=== PATIENT | male | born 1940 | race Caucasian/White ===

== ENCOUNTER 2019-12-13 13:17 | Emergency (ER) | payer OTHER, SELFPAY ==
[2019-12-13 14:14] LABS: Absolute Lymphocytes (CBC) 0.7 K/uL (0.7-4.9); Basophils % 0.2 % (0-1.3); Lymphocytes % 7.9 % (15.3-44.8); RBC Red Blood Cell Count 2.03 M/uL (4.33-5.43)
--- NOTE | 2019-12-13 14:15 | RAD REPORT ---
EXAM DESCRIPTION: CT - Head Brain Wo Cont - 12/13/2019 2:06 pm CLINICAL HISTORY: Syncope COMPARISON: None TECHNIQUE: Computed axial tomography of the head was obtained. IV contrast was not requested. All CT scans are performed using dose optimization technique as appropriate and may include automated exposure control or mA/KV adjustment according to patient size. FINDINGS: An acute intracranial bleed is not seen . The ventricles are normal in caliber. No extra-axial fluid collection is noted. Right craniotomy. 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 Fluid within the sinuses/ mastoids is not seen. IMPRESSION: No acute intracranial abnormality is seen. If patient's symptoms persist MRI of the bra in would be recommended.
[2019-12-13 14:23] LABS: Protime INR 1.12
[2019-12-13 14:25] LABS: Hematocrit 19.4 % (39.6-49.0)
[2019-12-13 14:37] LABS: ALT/SGPT 15 U/L (12-78); AST/SGOT 10 U/L (15-37); Albumin 3.1 g/dL (3.4-5.0); Alkaline Phosphatase 101 U/L (45-117); BUN Blood Urea Nitrogen 75 mg/dL (7-18); Bicarbonate 23 mmol/L (21-32); Bilirubin Direct 0.1 mg/dL (0-0.2); Bilirubin Total 0.2 mg/dL (0.2-1.0); Glucose Level 261 mg/dL (74-106); Magnesium 2.2 mg/dL (1.8-2.4); NT PRO-BNP 7053 pg/mL (<450); Potassium 4.9 mmol/L (3.5-5.1); Protein, Total 6.9 g/dL (6.4-8.2); Sodium Level 138 mmol/L (136-145); Troponin (Emerg Dept Use Only) < 0.02 ng/mL (0.0-0.045)
[2019-12-13 14:42] LABS: Blood Morphology Comment NOT SEEN (NOT SEEN); Platelet Estimate ADEQ; Urine White Blood Cell Casts OK
[2019-12-13] MEDS ORDERED: PANTOPRAZOLE INJ 80 MG in NA CHLORIDE 0.9% 250 ML IV SCH (15:00)
--- NOTE | 2019-12-13 15:11 | RAD REPORT ---
EXAM DESCRIPTION: CT - Abdomen Pelvis Wo Contrast - 12/13/2019 2:50 pm CLINICAL HISTORY: Abdominal pain /GI bleed COMPARISON: None TECHNIQUE: Computed axial tomography of the abdomen and pelvis was obtained. IV and oral contrast we re not requested. All CT scans are performed using dose optimization technique as appropriate and may include automated exposure control or mA/KV adjustment according to patient size. FINDINGS: The evaluation of solid organs, vessels and bowel is limited secondary to the lack of con trast administration. Small left pleural effusion with left lower lobe atelectasis The liver, spleen, pancreas, and adrenals appear grossly normal. 3.6 centimeter low-density mass extends off of the right kidney. Sub centimeter hemorrhagic/proteinac eous cyst. Tiny left renal cyst. 2 millimeter calcification left kidney. No hydronephrosis. Small umbilical hernia contains fat Mild rectal wall thickening The appendix is normal. There is no evidence of diverticulitis. IMPRESSION: Mild rectal wall thickening may indicate inflammation or mass Small left pleural effusion with left basilar atelectasis
--- NOTE | 2019-12-13 15:13 | RAD REPORT ---
EXAM DESCRIPTION: Tina Single View12/13/2019 2:19 pm CLINICAL HISTORY: Chest pain COMPARISON: none FINDINGS: A 24 millimeter nodular opacity right super hilum. Smaller additional nodular opacity with in the right lung. Left base is hazy Heart is borderline enlarged IMPRESSION: A 25 millimeter nodular opacity right suprahilar region. Smaller additional nodular opac ity noted within the right lung. CT chest recommended Left base is hazy which could be secondary to pleural effusion/ atelectasis
--- NOTE | 2019-12-13 15:23 | EDPHYS ---
Physician Documentation [facility] Name: Thien Stock Age: 79 yrs Sex: Male : 1940 Arrival Date: 12/13/2019 Time: 13:23 Bed 25 Private MD: ED Physician Jay Quinones HPI: 12/13 13:38 This 81 yrs old Male presents to ER via EMS with complaints of Syncope. pm1 13:38 The patient has experienced syncope, became unresponsive. Onset: The symptoms/episode pm1 began/occurred just prior to arrival. 13:38 Duration: This was a single episode, that lasted 2 minute(s), Patient was aware of pm1 everything going on but felt to weak to respond. Context: the episode(s) was witnessed, by family, grandson, occurred restaurant, occurred while the patient was defecating, Just prior to the episode the patient experienced no apparent symptoms. Associated injury: The patient did not suffer any apparent associated injury, Other: patient did not fall and remained seated on the toilet. Associated signs and symptoms: Pertinent positives: diaphoresis, lightheadedness, Pertinent negatives: abdominal pain, chest pain, shortness of breath. Current symptoms: Currently, the patient is not experiencing any symptoms, the patient feels back to baseline. Patient was at [facility] and went to the restroom to have a bowel movement. While having a bowel movement he felt lightheaded and was not responsive according to his grandson. Patient denies LOC and was aware of everything going on but he felt too weak to respond. On EMS arrival they reported that the patient's heart rate was in the 30's for about 10-15 minutes and administered him atropine 0.5 mg IV. Patient reports no complaints since receiving atropine. Historical: - Allergies: 15:12 No Known Allergies; aj1 - Home Meds: 15:12 aspirin 81 mg Oral chew 1 tab once daily [Active]; Stool Softener oral oral once daily aj1 [Active]; magnesium oxide 420 mg Oral tab daily [Active]; carvedilol 25 mg oral tab 1 tab 2 times per day [Active]; Plavix 75 mg Oral tab 1 tab once daily [Active]; finasteride 5 mg oral tab 1 tab once daily [Active]; furosemide 80 mg Oral tab 1 tab 2 times per day [Active]; isosorbide dinitrate 30 mg Oral tab 1 tab 2 times per day [Active]; nifedipine 60 mg Oral TbER 1 tab twice daily [Active]; spironolactone 50 mg Oral tab 1 tab once daily [Active]; ferrous gluconate 324 mg (37.5 mg iron) Oral tab twice a day [Active]; atorvastatin 80 mg oral tab 1 tab once daily [Active]; cetirizine 10 mg oral tab 1 tab once daily [Active]; multivitamin oral oral [Active]; omeprazole 20 mg Oral cpDR 1 cap once daily [Active]; gabapentin 300 mg oral cap 1 cap at bedtime [Active]; - PMHx: 15:12 Diabetes - NIDDM; cardiac stents x2; CKD; Hypertension; CHF; aj1 - Immunization history:: Adult Immunizations unknown. - Coronavirus screen:: The patient has NOT traveled to [place], [place], or [place] in the past 14 days. - Social history:: Smoking status: Patient denies any tobacco usage or history of. - Ebola Screening: : No symptoms or risks identified at this time. ROS: 13:38 Constitutional: Negative for fever, chills, and weight loss, Eyes: Negative for injury, pm1 pain, redness, and discharge, ENT: Negative for injury, pain, and discharge, Neck: Negative for injury, pain, and swelling, Cardiovascular: Negative for chest pain, palpitations, and edema, Respiratory: Negative for shortness of breath, cough, wheezing, and pleuritic chest pain, Abdomen/GI: Negative for abdominal pain, nausea, vomiting, diarrhea, and constipation, Back: Negative for injury and pain, MS/Extremity: Negative for injury and deformity, Skin: Negative for injury, rash, and discoloration. 13:38 Neuro: Positive for dizziness, syncope, Negative for headache. 14:34 Abdomen/GI: Positive for black/tarry stool, for the past 1 month. [place] has been planning pm1 to give the patient "shots" for his anemia. Exam: 13:38 Constitutional: This is a well developed, well nourished patient who is awake, alert, pm1 and in no acute distress. Head/Face: Normocephalic, atraumatic. 13:38 ENT: Nares patent. No nasal discharge, no septal abnormalities noted. Tympanic membranes are normal and external auditory canals are clear. Oropharynx with no redness, swelling, or masses, exudates, or evidence of obstruction, uvula midline. Mucous membranes moist. Neck: Trachea midline, no thyromegaly or masses palpated, and no cervical lymphadenopathy. Supple, full range of motion without nuchal rigidity, or vertebral point tenderness. No Meningismus. Chest/axilla: Normal chest wall appearance and motion. Nontender with no deformity. No lesions are appreciated. Cardiovascular: Regular rate and rhythm with a normal S1 and S2. No gallops, murmurs, or rubs. Normal PMI, no JVD. No pulse deficits. Respiratory: Lungs have equal breath sounds bilaterally, clear to auscultation and percussion. No rales, rhonchi or wheezes noted. No increased work of breathing, no retractions or nasal flaring. 13:38 Back: No spinal tenderness. No costovertebral tenderness. Full range of motion. Skin: Warm, dry with normal turgor. Normal color with no rashes, no lesions, and no evidence of cellulitis. MS/ Extremity: Pulses equal, no cyanosis. Neurovascular intact. Full, normal range of motion. 13:38 Eyes: Periorbital structures: appear normal, Pupils: no acute changes, Conjunctiva: pale, bilaterally. 13:38 Abdomen/GI: Inspection: abdomen appears normal, Bowel sounds: normal, in all quadrants, Palpation: abdomen is soft and non-tender, in all quadrants. 13:38 Skin: Appearance: normal except for affected area, Color: pale. 13:38 Neuro: Orientation: is normal, Mentation: is normal, Motor: is normal, moves all fours. 14:33 Abdomen/GI: Rectal exam: rectal tone normal, stool guaiac positive, stool black, stool pm1 loose, mass, is not appreciated, tenderness, is not appreciated, Jazzmine ASHER. Vital Signs: 13:25 BP 133 / 69; Pulse 84; Resp 18; Temp 97.6; Pulse Ox 97% on 2 lpm NC; vc 14:25 BP 137 / 55; Pulse 65; Resp 18; Pulse Ox 100% on 2 lpm NC; vc 15:20 BP 147 / 51; Pulse 62; Resp 18; Pulse Ox 97% on 2 lpm NC; vc 16:00 BP 146 / 53; Pulse 56; Resp 12; Pulse Ox 97% on 2 lpm NC; vc 16:30 BP 147 / 57; Pulse 56; Resp 16; Pulse Ox 96% on 2 lpm NC; vc 17:20 BP 147 / 50; Pulse 55; Resp 16; Temp 97.7(O); Pulse Ox 97% on 2 lpm NC; Pain 0/10; vc 17:31 BP 144 / 55; Pulse 58; Resp 15; Temp 97.7; Pulse Ox 96% on R/A; Pain 0/10; vc 17:36 BP 145 / 46; Pulse 52; Resp 15; Temp 97.9(O); Pulse Ox 96% on 2 lpm NC; vc 17:41 BP 144 / 59; Pulse 56; Resp 17; Temp 97.9(O); Pulse Ox 97% on 2 lpm NC; vc 17:56 BP 137 / 43; Pulse 58; Resp 19; Temp 98.1(O); Pulse Ox 96% on 2 lpm NC; Pain 0/10; vc 18:26 BP 140 / 56; Pulse 55; Resp 15; Temp 98.1(O); Pulse Ox 96% on R/A; Pain 0/10; vc 18:56 BP 130 / 60; Pulse 55; Resp 14; Temp 97.9; Pulse Ox 95% on 2 lpm NC; vc 19:15 BP 141 / 55; Pulse 63; Resp 15; Temp 97.9; Pulse Ox 95% on 2 lpm NC; vc 19:27 BP 145 / 60; Pulse 53; Resp 16; Temp 97.9(O); Pulse Ox 96% on 2 lpm NC; vc 19:32 BP 147 / 58; Pulse 55; Resp 16; Temp 97.8; Pulse Ox 97% on 2 lpm NC; vc 19:37 BP 147 / 61; Pulse 56; Resp 16; Temp 97.8(O); Pulse Ox 96% on 2 lpm NC; vc 19:52 BP 147 / 57; Pulse 53; Resp 19; Temp 98.7(O); Pulse Ox 96% on 2 lpm NC; vc 20:22 BP 157 / 57; Pulse 53; Resp 16; Temp 97.7; Pulse Ox 97% on 2 lpm NC; Weight 88.9 kg vc (R); Height 6 ft. 0 in. (182.88 cm); Pain 0/10; 20:32 BP 154 / 63; Pulse 53; Resp 16; Temp 97.7; Pulse Ox 95% on 2 lpm NC; vc 20:54 BP 149 / 60; Pulse 54; Resp 18; Temp 98.0(O); Pulse Ox 97% on 2 lpm NC; Pain 0/10; vc 22:00 BP 167 / 63; Pulse 59; Resp 13; Pulse Ox 97% on 2 lpm NC; vc 20:22 Body Mass Index 26.58 (88.90 kg, 182.88 cm) vc MDM: 13:30 Patient medically screened. pm1 14:35 ED course: Patient reports dark stool for the past month. PCP: JOSIAH. Reports plans for pm1 shots to address his anemia and discussions regarding potential dialysis fistula to left arm. 15:15 Data reviewed: vital signs. Data interpreted: Pulse oximetry: on room air is 97 %. pm1 Interpretation: normal. 15:19 Counseling: I had a detailed discussion with the patient and/or guardian regarding: the pm1 historical points, exam findings, and any diagnostic results supporting the discharge/admit diagnosis, lab results, radiology results, the need to transfer to another facility, [facility] does not immediately have the required specialist, GI. 20:54 ED course: Patient without any further bowel movements in the ER. pm1 21:19 Physician consultation: MD Dorantes was contacted at 21:19, regarding regarding transfer, pm1 patient's condition, and will see patient. 12/13 13:37 Order name: Basic Metabolic Panel; Complete Time: 15:00 pm1 12/13 13:37 Order name: CBC with Diff; Complete Time: 15:00 pm1 12/13 13:37 Order name: LFT's; Complete Time: 15:00 pm1 12/13 13:37 Order name: Magnesium; Complete Time: 15:00 pm1 12/13 13:37 Order name: NT PRO-BNP; Complete Time: 15:00 pm1 12/13 13:37 Order name: PT-INR; Complete Time: 14:33 pm1 12/13 13:37 Order name: Troponin (emerg Dept Use Only); Complete Time: 15:00 pm1 12/13 14:33 Order name: Occult Blood--Ancillary eb 12/13 14:42 Order name: CBC Smear Scan; Complete Time: 15:00 EDMS 12/13 14:44 Order name: Bb Add On eb 12/13 15:39 Order name: ABO/RH no charge; Complete Time: 15:42 EDMS 12/13 13:37 Order name: XRAY Chest (1 view); Complete Time: 15:21 pm1 12/13 13:37 Order name: EKG; Complete Time: 13:40 pm1 12/13 13:37 Order name: Cardiac monitoring; Complete Time: 15:18 pm1 12/13 13:37 Order name: EKG - Nurse/Tech; Complete Time: 15:18 pm1 12/13 13:38 Order name: CT Head Brain wo Cont; Complete Time: 14:33 pm1 12/13 14:37 Order name: CT Abd/Pelvis - IV Contrast Only pm1 12/13 14:42 Order name: Abdomen ; Complete Time: 15:17 EDMS 12/13 16:52 Order name: Packed RBC Leukored EDPA 12/13 16:55 Order name: ABO/RH typing EDPA 12/13 16:55 Order name: Antibody Screen EDMS 12/13 18:26 Order name: Glucose, Ancillary Testing; Complete Time: 18:29 EDMS 12/13 13:37 Order name: IV Saline Lock; Complete Time: 15:19 pm1 12/13 13:37 Order name: Labs collected and sent; Complete Time: 15:19 pm1 12/13 13:37 Order name: O2 Per Protocol; Complete Time: 15:19 pm1 12/13 13:37 Order name: O2 Sat Monitoring; Complete Time: 15:19 pm1 12/13 14:39 Order name: Transfuse; Complete Time: 21:57 pm1 Administered Medications: 15:28 Drug: ProTONIX 40 mg Route: IVP; Site: right forearm; aj1 16:00 Follow up: Response: No adverse reaction vc 15:28 Drug: ProTONIX 8 mg/hr Route: IV; Rate: 25 ml/hr; Site: right forearm; aj1 22:22 Follow up: IV Status: Infusion continued upon transfer vc 19:17 Drug: Lasix 20 mg Route: IVP; Site: right forearm; vc 19:54 Follow up: Response: No adverse reaction vc Point of Care Testing: Blood Glucose: 15:27 Blood Glucose: 263 mg/dL; vc Ranges: Critical Glucose Levels:Adult <50 mg/dl or >400 mg/dl <40 mg/dl or >180 mg/dl Disposition: 12/14 07:11 Co-signature as Attending Physician, Jay Quinones MD. rn Disposition: 12/13/19 15:21 Transfer ordered to [facility]. Diagnosis are Gastrointestinal hemorrhage, unspecified, Anemia, unspecified, Syncope and collapse. - Reason for transfer: Specialty. - Accepting physician is [facility]. - Condition is Stable. - Problem is new. - Symptoms have improved. Signatures: Dispatcher [employer] EDMS Juju Elder RN RN aj1 Jay Quinones MD MD rn Boris Rebolledo, MARKET NEWS REPORTER MARKET NEWS REPORTER pm1 Jazzmine Kerr RN RN vc Corrections: (The following items were deleted from the chart) 12/13 16:48 14:45 TYPE AND SCREEN+[id number].BRZ ordered. EDMS EDMS 16:50 14:54 Packed RBC Leukored ordered. EDMS EDMS 16:50 16:48 ABO/RH typing ordered. EDMS EDMS 16:50 16:48 Antibody Screen ordered. EDMS EDMS 16:55 16:52 Type and Screen ordered. EDMS EDMS 22:20 15:21 12/13/2019 15:21 Transfer ordered to [facility]. Diagnosis vc is Gastrointestinal hemorrhage, unspecifiedAnemia, unspecified; Syncope and collapse. Reason for transfer: Specialty. Accepting physician is [facility]. Condition is Stable. Problem is new. Symptoms have improved. pm1
--- NOTE | 2019-12-13 15:23 | ER ---
Nurse's Notes [facility] Name: Thien Stock Age: 79 yrs Sex: Male : 1940 Arrival Date: 12/13/2019 Time: 13:23 Bed 25 Private MD: Diagnosis: Anemia, unspecified;Gastrointestinal hemorrhage, unspecified;Syncope and collapse Presentation: 12/13 13:23 Presenting complaint: EMS states: Patient was having a BM at [facility] when he lost consciousness. Patient was unconscious for 2-3 minutes. When EMS arrived patient had regained consciousness, was diaphoretic,dizzy, and still sitting on the commode. Patient did not fall, no injury's were noted. Patients Pulse was 48 then dropped to 32, 0.5mg of atropine given. Patients heart rate increased to 68. Presenting complaint:. Presenting complaint: EMS states: vitals in route 152/64, Pulse 68, R 16, SpO2 99% on 2 L nasal canula. Transition of care: patient was not received from another setting of care. Onset of symptoms was December 13, 2019. Risk Assessment: Do you want to hurt yourself or someone else? Patient reports no desire to harm self or others. Initial Sepsis Screen: Does the patient meet any 2 criteria? RR > 20 per min. No. Patient's initial sepsis screen is negative. Does the patient have a suspected source of infection? No. Patient's initial sepsis screen is negative. Care prior to arrival: Medication(s) given: 0.5mg atropine IV initiated. 18 GA, in the right forearm, Glucose check: 263 Oxygen administered. via nasal cannula. 13:23 Method Of Arrival: EMS: [facility] vc 13:23 Acuity: AIDA 2 vc Historical: - Allergies: 15:12 No Known Allergies; aj1 - Home Meds: 15:12 aspirin 81 mg Oral chew 1 tab once daily [Active]; Stool Softener oral oral once daily aj1 [Active]; magnesium oxide 420 mg Oral tab daily [Active]; carvedilol 25 mg oral tab 1 tab 2 times per day [Active]; Plavix 75 mg Oral tab 1 tab once daily [Active]; finasteride 5 mg oral tab 1 tab once daily [Active]; furosemide 80 mg Oral tab 1 tab 2 times per day [Active]; isosorbide dinitrate 30 mg Oral tab 1 tab 2 times per day [Active]; nifedipine 60 mg Oral TbER 1 tab twice daily [Active]; spironolactone 50 mg Oral tab 1 tab once daily [Active]; ferrous gluconate 324 mg (37.5 mg iron) Oral tab twice a day [Active]; atorvastatin 80 mg oral tab 1 tab once daily [Active]; cetirizine 10 mg oral tab 1 tab once daily [Active]; multivitamin oral oral [Active]; omeprazole 20 mg Oral cpDR 1 cap once daily [Active]; gabapentin 300 mg oral cap 1 cap at bedtime [Active]; - PMHx: 15:12 Diabetes - NIDDM; cardiac stents x2; CKD; Hypertension; CHF; aj1 - Immunization history:: Adult Immunizations unknown. - Coronavirus screen:: The patient has NOT traveled to [place], [place], or [place] in the past 14 days. - Social history:: Smoking status: Patient denies any tobacco usage or history of. - Ebola Screening: : No symptoms or risks identified at this time. Screenin:30 Abuse screen: Denies threats or abuse. Nutritional screening: No deficits noted. vc Tuberculosis screening: No symptoms or risk factors identified. Fall Risk IV access (20 points). Gait- Weak (10 pts.). Total Preciado Fall Scale indicates Low Risk Score (25-44 pts). Assessment: 13:30 General: Appears in no apparent distress. comfortable, Behavior is calm, cooperative, vc appropriate for age. Pain: Denies pain. Neuro: Level of Consciousness is awake, alert, obeys commands, Oriented to person, place, time, situation, Appropriate for age Patient gets confused about dates and when something occured.. Cardiovascular: Capillary refill < 3 seconds Patient's skin is warm and dry. Rhythm is junctional rhythm. Respiratory: Airway is patent Respiratory effort is even, unlabored. GI: Stools are reported to be black, tarry.. Reports diarrhea. 13:30 : No signs and/or symptoms were reported regarding the genitourinary system. EENT: No vc signs and/or symptoms were reported regarding the EENT system. Derm: Skin temperature is warm. Musculoskeletal: Circulation, motion, and sensation intact. Range of motion: intact in all extremities. 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 . 14:30 Reassessment: Patient and/or family updated on plan of care and expected duration. Pain vc level reassessed. Patient is alert, oriented x 3, equal unlabored respirations, skin warm/dry/pink. 15:30 Reassessment: Patient and/or family updated on plan of care and expected duration. Pain vc level reassessed. Patient denies pain at this time. 16:30 Reassessment: Patient and/or family updated on plan of care and expected duration. Pain vc level reassessed. Patient is alert, oriented x 3, equal unlabored respirations, skin warm/dry/pink. Patient denies pain at this time. 17:26 Reassessment: Blood transfusion started at this time. Blood verified by Merlyn Sandoval vc RN. 18:30 Reassessment: Patient and/or family updated on plan of care and expected duration. Pain vc level reassessed. Patient is alert, oriented x 3, equal unlabored respirations, skin warm/dry/pink. Patient denies pain at this time. 19:19 Reassessment: Patient and/or family updated on plan of care and expected duration. Pain vc level reassessed. Patient is alert, oriented x 3, equal unlabored respirations, skin warm/dry/pink. blood unit verified by Yeimi Estrada RN. 20:00 Reassessment: Patient and/or family updated on plan of care and expected duration. Pain vc level reassessed. Patient is alert, oriented x 3, equal unlabored respirations, skin warm/dry/pink. Patient denies pain at this time. Patient states feeling better. 21:00 Reassessment: Patient and/or family updated on plan of care and expected duration. Pain vc level reassessed. Patient is alert, oriented x 3, equal unlabored respirations, skin warm/dry/pink. 22:01 Reassessment: Patient and/or family updated on plan of care and expected duration. Pain vc level reassessed. Patient is alert, oriented x 3, equal unlabored respirations, skin warm/dry/pink. Patient states feeling better. Patient states symptoms have improved. Reassessment:. Vital Signs: 13:25 BP 133 / 69; Pulse 84; Resp 18; Temp 97.6; Pulse Ox 97% on 2 lpm NC; vc 14:25 BP 137 / 55; Pulse 65; Resp 18; Pulse Ox 100% on 2 lpm NC; vc 15:20 BP 147 / 51; Pulse 62; Resp 18; Pulse Ox 97% on 2 lpm NC; vc 16:00 BP 146 / 53; Pulse 56; Resp 12; Pulse Ox 97% on 2 lpm NC; vc 16:30 BP 147 / 57; Pulse 56; Resp 16; Pulse Ox 96% on 2 lpm NC; vc 17:20 BP 147 / 50; Pulse 55; Resp 16; Temp 97.7(O); Pulse Ox 97% on 2 lpm NC; Pain 0/10; vc 17:31 BP 144 / 55; Pulse 58; Resp 15; Temp 97.7; Pulse Ox 96% on R/A; Pain 0/10; vc 17:36 BP 145 / 46; Pulse 52; Resp 15; Temp 97.9(O); Pulse Ox 96% on 2 lpm NC; vc 17:41 BP 144 / 59; Pulse 56; Resp 17; Temp 97.9(O); Pulse Ox 97% on 2 lpm NC; vc 17:56 BP 137 / 43; Pulse 58; Resp 19; Temp 98.1(O); Pulse Ox 96% on 2 lpm NC; Pain 0/10; vc 18:26 BP 140 / 56; Pulse 55; Resp 15; Temp 98.1(O); Pulse Ox 96% on R/A; Pain 0/10; vc 18:56 BP 130 / 60; Pulse 55; Resp 14; Temp 97.9; Pulse Ox 95% on 2 lpm NC; vc 19:15 BP 141 / 55; Pulse 63; Resp 15; Temp 97.9; Pulse Ox 95% on 2 lpm NC; vc 19:27 BP 145 / 60; Pulse 53; Resp 16; Temp 97.9(O); Pulse Ox 96% on 2 lpm NC; vc 19:32 BP 147 / 58; Pulse 55; Resp 16; Temp 97.8; Pulse Ox 97% on 2 lpm NC; vc 19:37 BP 147 / 61; Pulse 56; Resp 16; Temp 97.8(O); Pulse Ox 96% on 2 lpm NC; vc 19:52 BP 147 / 57; Pulse 53; Resp 19; Temp 98.7(O); Pulse Ox 96% on 2 lpm NC; vc 20:22 BP 157 / 57; Pulse 53; Resp 16; Temp 97.7; Pulse Ox 97% on 2 lpm NC; Weight 88.9 kg vc (R); Height 6 ft. 0 in. (182.88 cm); Pain 0/10; 20:32 BP 154 / 63; Pulse 53; Resp 16; Temp 97.7; Pulse Ox 95% on 2 lpm NC; vc 20:54 BP 149 / 60; Pulse 54; Resp 18; Temp 98.0(O); Pulse Ox 97% on 2 lpm NC; Pain 0/10; vc 22:00 BP 167 / 63; Pulse 59; Resp 13; Pulse Ox 97% on 2 lpm NC; vc 20:22 Body Mass Index 26.58 (88.90 kg, 182.88 cm) vc ED Course: 13:23 Patient arrived in ED. vc 13:23 Jazzmine Kerr, LB is Primary Nurse. vc 13:23 Boris Rebolledo NP is PHCP. pm1 13:24 Jay Quinones MD is Attending Physician. pm1 13:30 Arm band placed on. vc 13:34 Triage completed. vc 13:35 Patient has correct armband on for positive identification. vc 14:06 CT completed. Patient moved back from CT. Patient moved to radiology. bq 14:11 CT Head Brain wo Cont In Process Unspecified. EDMS 14:20 XRAY Chest (1 view) In Process Unspecified. EDMS 14:54 Abdomen In Process Unspecified. EDMS 15:25 attempted to initiate a transfer with Nelson from the [facility] transfer center/ per Nelson he eb needed the patient social security number to pull him up and once I get that to call him back. 15:43 initiated a transfer with Nelson from the [facility] transfer center. eb 15:45 faxed patient records as requested by Rusty to the [facility] at [phone]. eb 16:07 refaxed patient records to another fax machine requested by the [facility] transfer center. \T\ eb [phone]. 18:14 Inserted saline lock: 22 gauge in right antecubital area, using aseptic technique. iw 22:19 No provider procedures requiring assistance completed. Patient transferred, IV remains vc in place. Administered Medications: 15:28 Drug: ProTONIX 40 mg Route: IVP; Site: right forearm; aj1 16:00 Follow up: Response: No adverse reaction vc 15:28 Drug: ProTONIX 8 mg/hr Route: IV; Rate: 25 ml/hr; Site: right forearm; aj1 22:22 Follow up: IV Status: Infusion continued upon transfer vc 19:17 Drug: Lasix 20 mg Route: IVP; Site: right forearm; vc 19:54 Follow up: Response: No adverse reaction vc Point of Care Testing: Blood Glucose: 15:27 Blood Glucose: 263 mg/dL; vc Ranges: Outcome: 15:21 ER care complete, transfer ordered by MD. pm1 22:19 Transferred by ground EMS to [facility] Transfer form completed. vc X-rays sent w/ patient. 22:19 Condition: good 22:19 Instructed on the need for transfer. 22:20 Patient left the ED. vc Signatures: Dispatcher [employer] EDMS Juju Elder RN RN aj1 Lucia Harden Irene, RN RN iw Boris Rebolledo, [employer] OPENING MACHINE CLEANER pm1 Rosette Clay Vanessa, RN RN vc Corrections: (The following items were deleted from the chart) 15:20 12:11 BP 113 / 69; Pulse 84bpm; Resp 18bpm; Pulse Ox 97% RA; aj1 aj1 15:22 13:25 BP 113 / 69; Pulse 84bpm; Resp 18bpm; Pulse Ox 97% RA; Temp 97.6F; aj1 [facility] 15:34 15:27 General: Appears in no apparent distress. comfortable, Behavior is calm, vc cooperative, appropriate for age, vc 15:34 15:27 Pain: Denies pain. vc vc 15:34 15:27 Neuro: Level of Consciousness is awake, alert, obeys commands, Oriented to vc person, place, time, situation, Appropriate for age Patient gets confused about dates and when something occured.. vc 15:34 15:27 Cardiovascular: Capillary refill < 3 seconds Patient's skin is warm and dry. vc Rhythm is junctional rhythm vc 15:34 15:27 Respiratory: Airway is patent Respiratory effort is even, unlabored, vc vc 15:34 15:27 GI: Stools are reported to be black, tarry.. Reports diarrhea, [facility] 16:59 15:20 BP 147 / 51; Pulse 62bpm; Resp 18bpm; Pulse Ox 97% RA; [facility] vc 16:59 13:25 BP 133 / 69; Pulse 84bpm; Resp 18bpm; Pulse Ox 97% RA; Temp 97.6F; [facility] vc 16:59 14:25 BP 137 / 55; Pulse 65bpm; Resp 18bpm; Pulse Ox 100% RA; [facility] vc 17:13 17:10 Derm: vc vc 17:13 17:10 : vc vc 17:47 17:45 Reassessment: vc vc
[2019-12-13] MEDS ORDERED: PANTOPRAZOLE 40 MG INJ ONE (15:27)
[2019-12-13] MEDS ORDERED: NA CHLORIDE 0.9% 500 ML ONE (18:45)
[2019-12-13] MEDS ORDERED: FUROSEMIDE 20 MG/ 2ML VIAL ONE (19:15)
[2019-12-13 22:57] VITALS: BP 108/69; TEMP 98.4; O2SAT 100
--- NOTE | 2019-12-15 09:23 | EKG ---
Test Date: 2019-12-13 Test Time: 13:55:04 Lathe Sander: MEASUREMENT RESULTS: Intervals: Rate: 62 ME: 240 QRSD: 102 QT: 454 QTc: 460 [place]: P: ME: 240 QRS: 7 T: 55 INTERPRETIVE STATEMENTS: Sinus rhythm with first degree AV block Prolonged QT Abnormal ECG No previous ECG available for comparison Electronically Signed On 12-15-19 09:23:24 CLEANING TECHNICIAN by Neto Diane
--- NOTE | 2019-12-15 09:23 | EKG ---
Test Date: 2019-12-13 Test Time: 13:55:56 Show Dog Trainer: MEASUREMENT RESULTS: Intervals: Rate: 62 TN: 240 QRSD: 108 QT: 456 QTc: 462 [place]: P: TN: 240 QRS: 7 T: 3 INTERPRETIVE STATEMENTS: Sinus rhythm with first degree AV block Prolonged QT Abnormal ECG Compared to ECG 12/13/2019 13:55:04 no significant change from previous ECG Electronically Signed On 12-15-19 09:22:47 ASPNET DEVELOPER by Neto Diane
== END 2019-12-13 22:20 ==
LOC: EDBD 13:17 → ER 13:17
PROC: 30233N1 Transfusion of Nonautologous Red Blood Cells into Peripheral Vein, Percutaneous Approach (ICD-10-PCS; principal; 2019-12-13)
DX: D64.9 Anemia, unspecified (principal); R55 Syncope and collapse; I10 Essential (primary) hypertension; E11.9 Type 2 diabetes mellitus without complications; Z95.818 Presence of other cardiac implants and grafts; Z79.01 Long term (current) use of anticoagulants; Z79.82 Long term (current) use of aspirin
CPT/HCPCS: 96365; 93005 ×2; 85025; 80048; 36415; 86900; 83735; 86850; 85610; 86901; 82947; 80076; 84484; 86922 ×2; 83880; 70450; 74176; 71045; 96375; 99285; 96366; 36430; J1940; C9113 ×2; P9016 ×2; J7030; J7040